=== PATIENT | male | born 1990 | race African-American/Black ===

== ENCOUNTER 2017-11-21 20:45 | Emergency (ER) | payer MEDICAID ==
--- NOTE | 2017-11-21 21:22 | RADIOLOGY REPORT (SQ) ---
EXAM DESCRIPTION: FOOT RIGHT COMPLETE COMPLETED DATE/TIME: 11/21/2017 9:09 pm REASON FOR STUDY: pain s/p injury/ kicked a door COMPARISON: 2006 NUMBER OF VIEWS: Three views right foot. LIMITATIONS: None. FINDINGS: Old healed dorsal talar fracture. No acute fracture. Soft tissues within normal limits. OTHER: No other significant finding. IMPRESSION: No acute radiographic abnormality. TECHNICAL DOCUMENTATION: JOB ID: [id number] Reading location - IP/workstation name: [email or web address]
[2017-11-21] MEDS ORDERED: IBUPROFEN 800 MG TABLET PO ONE (22:17)
--- NOTE | 2017-11-21 22:22 | ER Document Report ---
HPI - HPI Pain Level: 3 Notes: Patient is a 27-year-old male no significant past medical history who presents to the ED complaining of right lateral/dorsal foot pain status post injury 1 day. Patient states that he hit the lateral foot off of the corner of a door. Patient states that the pain does not radiate. He started noticing swelling this morning. Patient states that he does have pain with weightbearing, but is still limping around. He has not noticed any redness or trauma to the skin. Denies any drug allergies. Denies any headache, fever, URI, sore throat, chest pain, palpitations, syncope, cough, shortness of breath, wheeze, dyspnea, abdominal pain, nausea/vomiting/diarrhea, urinary retention, dysuria, hematuria , numbness/tingling, muscle paralysis/weakness, or rash. - ROS Systems Reviewed and Negative: Yes All other systems reviewed and negative - CONSTITUTIONAL Constitutional: DENIES: Fever, Chills - EENT EENT: DENIES: Sore Throat, Ear Pain, Eye problems - NEURO Neurology: DENIES: Headache, Weakness, Vision blurred, Dizzinesss / Vertigo - CARDIOVASCULAR Cardiovascular: DENIES: Chest pain - RESPIRATORY Respiratory: DENIES: Trouble Breathing, Coughing - GASTROINTESTINAL Gastrointestinal: DENIES: Abdominal Pain, Black / Bloody Stools - URINARY Urinary: DENIES: Dysuria, Urgency, Frequency - REPRODUCTIVE Reproductive: DENIES: : - MUSCULOSKELETAL Musculoskeletal: REPORTS: Extremity pain - R foot Past Medical History - Social History Smoking Status: Never Smoker Chew tobacco use (# tins/day): - "Vape" Frequency of alcohol use: None Drug Abuse: None Family History: Reviewed & Not Pertinent Patient has suicidal ideation: No Patient has homicidal ideation: No Renal/ Medical History: Denies: Hx Peritoneal Dialysis Vertical Provider Document - CONSTITUTIONAL Agree With Documented VS: Yes Notes: PHYSICAL EXAMINATION: GENERAL: Well-appearing, well-nourished and in no acute distress. LUNGS: Breath sounds clear to auscultation bilaterally and equal. No wheezes rales or rhonchi. HEART: Regular rate and rhythm without murmurs, rubs, gallops. Musculoskeletal: Rt foot/ankle: + swelling to the dorsal foot with some pitting edema present only to the dorsal foot. FROM to passive/active. Strength 5+/5. N/ V intact distal. + tenderness to the lateral dorsal foot. No bony tenderness of the ankle. Achilles intact. Kassie neg b/l. There is no erythema or excessive warmth vs the left side. No skin abrasion or signs of infection. Extremities: No cyanosis, clubbing, or edema b/l. Peripheral pulses 2+. Capillary refill less than 3 seconds. NEUROLOGICAL: Normal speech, limping gait. Normal sensory, motor exams PSYCH: Normal mood, normal affect. SKIN: Warm, Dry, normal turgor, no rashes or lesions noted. - INFECTION CONTROL TRAVEL OUTSIDE OF THE [place] IN LAST 30 DAYS: No Course - Re-evaluation Re-evalutation: 11/21/17 22:20 Dr. Olvera also eval'd the patient and is in agreement with dispo/plan. Patient is an afebrile, well-hydrated, 27-year-old male who presents to the ED with right foot pain, suspect contusion. Vitals are acceptable without any significant tachycardia, tachypnea, or hypoxia. PE is otherwise unremarkable for any neurovascular compromise, obvious tendon/ligament rupture, obvious fracture/dislocation, septic joint, DVT, cellulitis. X-ray was unremarkable for any acute pathology. Crutches provided today. Motrin given p.o. Patient is nontoxic-appearing. Patient is able to ambulate and weight-bear although he is limping. No other labs or imaging warranted at this time based on H&P. Conservative measures otherwise for symptoms. Recheck with your PCM in 3-5 days. Consider consult orthopedics. Return to the ED with any worsening/ concerning symptoms otherwise as reviewed in discharge. Patient is in agreement. - Vital Signs Vital signs: Temp Pulse Resp BP Pulse Ox 98.7 F 91 18 135/78 H 98 11/21/17 20:54 11/21/17 20:54 11/21/17 20:54 11/21/17 20:54 11/21/17 20:54 Discharge - Discharge Clinical Impression: Right foot pain Condition: Stable Disposition: HOME, SELF-CARE Instructions: Ice & Elevation ([facility]) Additional Instructions: Rest, Ice, Compression, Elevation Use crutches as directed Tylenol/ibuprofen as needed Light stretches daily Strength exercises as able Moist heat and massage may help F/u with your PCP in 3-5 days for a recheck Consider consult(s) with Orthopedics/physical therapy for ongoing/worsening symptoms Return to the ED with any worsening symptoms and/or development of fever, headache, chest pain, palpitations, syncope, shortness of breath, trouble breathing, abdominal pain, n/v/d, muscle weakness/paralysis, numbness/tingling, swelling, redness, or other worsening symptoms that are concerning to you. Forms: Elevated Blood Pressure Referrals: [facility] [Provider Group] - Follow up as needed
[2017-11-21 22:34] VITALS: BP 140/87
== END 2017-11-21 22:34 | disposition home or self-care (01) ==
LOC: ER 20:45
DX: M79.671 Pain in right foot (principal)
CPT/HCPCS: 99283; 73630; J3490